=== PATIENT | female | born 1960 | race Caucasian/White ===

== ENCOUNTER → 2017-01-03 07:53 | Outpatient (CLI) | payer BC | LOC: D.MRI 01-02 15:00 | DX: M25.561 Pain in right knee (principal) ==

== ENCOUNTER 2017-01-09 09:30 | Day surgery (SDC) | payer BC ==
[2017-01-06 15:39] LABS: HEMATOCRIT 41.2 % (36.0-48.0); HEMOGLOBIN 13.6 g/dL (12-16); MCH 31.1 pg (26.0-34.0); MCV 94.1 fL (80.0-100.0); MEAN PLATELET VOLUME 9.7 fL (7.4-10.4); RBC 4.38 10x6/uL (4.00-5.40); RDW 12.3 % (11.5-14.5); WBC 5.6 10x3/uL (4.8-10.8)
[~2017-01-09] VITALS: Ht 170.2 cm; Wt 57.2 kg
[~2017-01-09 09:30] MED LIST: AMBIEN10 MG PO; SYNTHROID50 MCG PO; ZOCOR20 MG PO
[2017-01-09 14:00] VITALS: BP 113/68; Ht 170.2 cm; Wt 57.2 kg
[2017-01-09] MEDS ORDERED: HYDROCODONE-APA1 TAB PO (17:14)
--- NOTE | 2017-01-13 14:19 | OP ---
PATIENT NAME: TJ CABEZAS MEDICAL RECORD: [id number] :58 LOCATION:D.OPS ADMISSION DATE: SURGEON: LANA CARTWRIGHT MD DATE OF OPERATION: 01/09/2017 PREOPERATIVE DIAGNOSIS: Medial meniscus tear of the left knee. POSTOPERATIVE DIAGNOSIS: Medial meniscus tear of the left knee. PROCEDURE: Arthroscopic partial medial meniscectomy of the left knee. SURGEON: Lana Cartwright MD. ANESTHESIA: General. INTRAOPERATIVE COMPLICATIONS: None. SUMMARY OF PATHOLOGIC FINDINGS: The patient had a complex tear of the posterior horn of the medial meniscus consistent with preoperative MRI. OPERATIVE SUMMARY IN DETAIL: After obtaining the appropriate preoperative orthopedic surgery consent as well as anesthetic consultation, evaluation and clearance, the patient was brought to the operating room and placed on the operating table in supine position. After general laryngeal mask was administered, tourniquet was placed about the proximal aspect of left lower extremity. Left lower extremity was then prepped and draped in routine sterile fashion. The leg was elevated and exsanguinated, tourniquet inflated to 350 mmHg. Routine inferolateral portal was established followed by superomedial portal and inferomedial portal. Diagnostic arthroscopy did reveal the patient to have a complex tear of the posterior horn of the medial meniscus. Arthroscopic resector was utilized to debride the medial meniscus back to stable meniscal elements. Having completed this, the knee was insufflated with 30 cc of 0.25% Marcaine with epinephrine and 40 mg of Depo-Medrol. Arthroscopy portals were closed in routine interrupted fashion using 4-0 Prolene. Sterile dressings were applied. The tourniquet was deflated. The patient was awakened, taken to recovery room in stable condition. All final needle and sponge counts were correct. TRANSINT:[id number] Voice Confirmation ID: [id number] DOCUMENT ID: [id number] LANA CARTWRIGHT MD at 1419 CC: [id number] DICTATION DATE: 01/13/17916 TOBACCO SORTER: 01/13/17 1225 [facility] 01/09/17 [place] [address]
== END 2017-01-09 19:00 | disposition home or self-care (01) ==
LOC: D.OPS 09:30 → D.PAN 16:30 → D.OPS 16:30
PROVIDERS: Anesthesiology
DX: S83.242A Other tear of medial meniscus, current injury, left knee, initial encounter (principal); E03.9 Hypothyroidism, unspecified; Z01.812 Encounter for preprocedural laboratory examination

== ENCOUNTER 2017-02-22 15:59 | Outpatient (CLI) | payer BC ==
[2017-01-09 14:00] VITALS: BMI 19.7
[~2017-02-22 15:59] MED LIST changes: +HYDROCODONE-APA1 TAB PO
== END 2017-02-22 16:34 ==
LOC: D.MAMMO 15:59
DX: Z12.31 Encounter for screening mammogram for malignant neoplasm of breast (principal)

== ENCOUNTER → 2017-04-10 11:15 | Outpatient (CLI) | payer BC ==
[2017-01-09 14:00] VITALS: BMI 19.7
== END | disposition home or self-care (01) ==
LOC: D.US 11:15
DX: R10.9 Unspecified abdominal pain (principal)

== ENCOUNTER → 2017-04-25 07:50 | Outpatient (CLI) | payer BC ==
[2017-01-09 14:00] VITALS: BMI 19.7
== END | disposition home or self-care (01) ==
LOC: D.NM 07:50
DX: R10.11 Right upper quadrant pain (principal)

== ENCOUNTER → 2017-05-03 12:50 | Outpatient (CLI) | payer BC ==
[2017-01-09 14:00] VITALS: BMI 19.7
== END | disposition home or self-care (01) ==
LOC: D.CT 12:50
DX: R16.0 Hepatomegaly, not elsewhere classified (principal)

== ENCOUNTER → 2017-05-23 05:49 | Day surgery (SDC) | payer BC ==
[2017-05-22 13:55] LABS: BASOPHILS 0.4 % (0-2); EOSINOPHILS 4.3 % (0-7); HEMATOCRIT 40.2 % (36.0-48.0); HEMOGLOBIN 13.4 g/dL (12-16); MCH 31.5 pg (26.0-34.0); MCHC 33.3 g/dL (31.0-37.0); MCV 94.6 fL (80.0-100.0); MEAN PLATELET VOLUME 9.6 fL (7.4-10.4); MONOCYTES 11.3 % (2-11); PLATELET COUNT 221 10x3/uL (130-400); RBC 4.25 10x6/uL (4.00-5.40); RDW 12.3 % (11.5-14.5); WBC 5.1 10x3/uL (4.8-10.8)
[2017-05-22 14:21] LABS: CALC OSMOLALITY 280 mosm/kg (275-300); CALCIUM 9.3 mg/dL (8.5-10.1); CARBON DIOXIDE 32.3 mmol/L (21.0-32.0); CHLORIDE - SERUM 105 mmol/L (98-107); CREATININE - SERUM 0.8 mg/dL (0.6-1.3); GLUCOSE 90 mg/dL (74-106); POTASSIUM - SERUM 4.7 mmol/L (3.5-5.1); SODIUM 141 mmol/L (136-145); UREA NITROGEN 12 mg/dL (7-18); eGFR NON AFRICAN AMERICAN 78 mL/min (90-120)
[~2017-05-23] VITALS: Ht 170.2 cm; Wt 58.1 kg
--- NOTE | ~2017-05-23 | OP ---
PATIENT NAME: TJ CABEZAS MEDICAL RECORD: [id number] :58 LOCATION:D.OPS ADMISSION DATE: SURGEON: MIGUEL ÁNGEL PATEL MD DATE OF OPERATION: 05/23/2017 PREOPERATIVE DIAGNOSES: 1. Biliary dyskinesia. 2. Hyperlipidemia. POSTOPERATIVE DIAGNOSES: 1. Biliary dyskinesia. 2. Hyperlipidemia. PROCEDURE: Laparoscopic cholecystectomy. SURGEON: Miguel Ángel Patel MD REPORT OF PROCEDURE: The patient's abdomen was prepped and draped in sterile fashion. A cutdown was made on the inferior aspect of the umbilicus. Vicryls #0 were placed on the fascia bilaterally and the fascia was incised with #15 blade. I then bluntly entered the peritoneal cavity and placed a 12-mm Trent port. Under direct visualization, a 5-mm trocar was placed in the epigastrium and two more 5-mm trocars were placed in the right subcostal region. The gallbladder was grasped and elevated. The cystic artery and duct were dissected free. These were clipped proximally and distally and ligated in standard fashion. The artery was actually bifurcated and both branches were clipped and ligated. The gallbladder was then taken off the liver bed using electrocautery. We irrigated out the right upper quadrant and assured there was no sign of any bleeding from the liver bed. At this point, the ports and insufflation were then removed and the gallbladder was taken out through the umbilicus. The umbilical fascia was closed with interrupted #0 Vicryls times 3. The wounds were irrigated out with normal saline and infused with 10 mL of 0.25% Marcaine with epinephrine. The skin incisions were all closed with subcutaneous 5-0 Monocryl and dressed appropriately. COMPLICATIONS: None. CONDITION: Stable. ANESTHESIA: General endotracheal and local. BLOOD LOSS: Minimal. TRANSINT:[id number] Voice Confirmation ID: [id number] DOCUMENT ID: [id number] MIGUEL ÁNGEL PATEL MD CC: LUPE MCCORMICK MD [id number] DICTATION DATE: 05/23/17 1040 SURGERY MANAGER: 05/23/17 1209 [facility] [address] [id number]
[~2017-05-23 05:49] MED LIST changes: +BIOTIN5 MG PO; +GARLIC PO; +MOBIC7.5 MG PO; +MULTIPLE VITAMI1 TA1 PO; +VITAMIN B-121000 MCG PO; +VITAMIN C1000 MG PO
[2017-05-23 07:15] VITALS: BP 131/68; Ht 170.2 cm; Wt 58.1 kg
== END | disposition home or self-care (01) ==
LOC: D.OPS 05:49 → D.PAN 08:15
PROVIDERS: Surgery
DX: K82.8 Other specified diseases of gallbladder (principal); E03.9 Hypothyroidism, unspecified; E78.5 Hyperlipidemia, unspecified; Z01.812 Encounter for preprocedural laboratory examination

== ENCOUNTER 2017-07-08 11:07 | Observation (INO) | payer BC ==
[~2017-07-08] VITALS: Ht 170.2 cm; Wt 56.8 kg
--- NOTE | 2017-07-08 03:00 | NUR ---
PT LYING IN BED AWAKE, WATCHING TV. DENIES NEEDS AT THIS TIME. CONTINUE MEDICAL ASSISTANT DERMATOLOGY'S PLAN OF CARE.
--- NOTE | 2017-07-08 14:00 | NUR ---
RECEIVED TO ROOM 2217 VIA STRETCHER FROM ER. A/O X3. NO C/O AT THIS TIME. SKIN IS INTACT WITHOUT REDNESS EXCEPT ABRASION TO RIGHT SIDE OF FACE AND SMALL ABRASION TO RIGHT HIP. SL TO LEFT AC IS PATENT WITHOUT REDNESS AT INSERTION SITE. DENIES NEEDS.
[2017-07-08 14:05] VITALS: BP 145/78; Ht 170.2 cm; Wt 56.8 kg
--- NOTE | 2017-07-08 14:30 | NUR ---
UP IN ROOM WITH PT. VERY PAINFUL WITH ACTIVITY. WILL MONITOR.
--- NOTE | 2017-07-08 15:30 | NUR ---
REQUESTED AND GIVEN ONE HYDROCODONE PO FOR C/O RIGHT PELVIC PAIN LEVEL 6. WILL MONITOR. FAMILY IN ROOM. DENIES OTHER NEEDS.
[2017-07-08 15:44] VITALS: BP 145/78
--- NOTE | 2017-07-08 16:54 | NUR ---
UP TO [facility] WITH ONE PERSON ASSIST. VOIDED 250 CC CLEAR YELLOW URINE WITHOUT DIFFICULTY. SITTING UP ON SIDE OF BED AT THIS TIME.
--- NOTE | 2017-07-08 17:20 | NUR ---
C/O NAUSEA, NO EMESIS. GIVEN 4 MG ZOFRAN SLOW IVP FOR SAME. WILL MONITOR. HEART RATE REGULAR AT 77. SKIN SLIGHTLY CLAMY. COOL CLOTH PLACED ON FOREHEAD. WILL MONITOR.
--- NOTE | 2017-07-08 17:30 | NUR ---
OFF UNIT VIA BED FOR CT. DR. ALDRIDGE NOTIFIED OF LOSS OF CONSCIOUSNESS WITH FALL. CT OF HEAD ORDERED.
--- NOTE | 2017-07-08 18:44 | NUR ---
RETURNED FROM CT. NO CHANGES NOTED. DENIES NEEDS.
[2017-07-08 20:00] VITALS: BP 124/70
--- NOTE | 2017-07-08 21:27 | NUR ---
PATIENT RESTING COMFORTABLY, STATED THAT SHE WILL ASK FOR HER AMBIEN IF SHE NEEDS IT. HELPED PATIENT UP TO BEDSIDE CAMODE. STATED THE IT IS HER RIGHT HIP THAT HURTS THE MOST WITH MOVEMENT. NO OTHER NEEDS NOTED AT THIS TIME.
[2017-07-09] VITALS (7 sets, daily range): BP systolic 114–130; BP diastolic 53–70
[2017-07-09 05:26] LABS: BASOPHILS 0.1 % (0-2); EOSINOPHILS 0.8 % (0-7); HEMATOCRIT 36.3 % (36.0-48.0); IMMATURE GRANULOCYTES 0.1 % (0-5); LYMPHOCYTES 26.4 % (15-50); MCHC 33.1 g/dL (31.0-37.0); MCV 93.8 fL (80.0-100.0); MEAN PLATELET VOLUME 9.4 fL (7.4-10.4); MONOCYTES 9.9 % (2-11); NEUTROPHILS 62.7 % (40-80); RBC 3.87 10x6/uL (4.00-5.40); RDW 12.9 % (11.5-14.5); WBC 7.6 10x3/uL (4.8-10.8)
[2017-07-09 05:31] LABS: PLATELET COUNT 174 10x3/uL (130-400)
[2017-07-09 06:00] LABS: CALC OSMOLALITY 286 mosm/kg (275-300); CALCIUM 8.1 mg/dL (8.5-10.1); CARBON DIOXIDE 28.3 mmol/L (21.0-32.0); CHLORIDE - SERUM 109 mmol/L (98-107); CREATININE - SERUM 0.6 mg/dL (0.6-1.3); GLUCOSE 100 mg/dL (74-106); POTASSIUM - SERUM 3.7 mmol/L (3.5-5.1); SODIUM 144 mmol/L (136-145); UREA NITROGEN 13 mg/dL (7-18); eGFR NON AFRICAN AMERICAN > 90 mL/min (90-120)
--- NOTE | 2017-07-09 08:00 | NUR ---
ASSESSMENT PER FLOW SHEET.PT WITHOUT DISTRESS.COMPLAINS OF PAIN UPON MOVEMENT.ICE PACKS ORDERED.MONITOR FOR NEEDS
--- NOTE | 2017-07-09 09:00 | NUR ---
MEDS ORDERED FOR PAIN,SEE MAR. ICE PACKS PROVIDED
--- NOTE | 2017-07-09 10:30 | NUR ---
ASSIST UP TO BSC. GAIT STEADY WITH ASSIST.PAIN BETTER.MONITOR
--- NOTE | 2017-07-09 12:27 | NUR ---
DENIES NEEDS, JUST STARTED TO NAP.
--- NOTE | 2017-07-09 17:42 | NUR ---
UP AT BEDSIDE EATING DINNER.REMAINS WITHOUT CHANGE FROM INITIAL SHIFT ASSESSMENT.CONT PLAN OF CARE
--- NOTE | 2017-07-09 19:55 | NUR ---
PATIENT RESTING IN BED WITH NO VISIBLE SIGNS OF DISTRESS. I ASSISTED THE PATIENT UP TO THE BSC AND BACK TO BED. PATIENT DENIES OTHER NEEDS AT THIS TIME. BED IN LOWEST POSITION AND CALL LIGHT WITHIN REACH. ENCOURAGED THE PATIENT TO CALL IF SHE HAS NEEDS.
--- NOTE | 2017-07-09 20:04 | NUR ---
LATE ENTRY 1130 MET WITH PATIENT AND HER AT THE BEDSIDE. HER PLAN IS TO DISCHARGE TO HOME. SHE WILL NEED A WALKER WITH PLATFORM AND HAS NEED OF A HOSPITAL BED. THERE ARE 4 STEPS TO ENTER HER HOME. THERE ARE 11 STEPS TO THE LEVEL FOR HER BEDROOM. NO BEDROOMS ON THE GROUND LEVEL. PELVIC FX'S AT THREE SITES. PAIN MANAGEMENT IS ISSUE THIS AM. PHYSICAL THERAPY HAS VISITED TO EVAL AND START THERAPY. DISCUSSED PROVIDERS FOR DME. [facility]. SHE BELIEVES THEY ASSISTED HER PREVIOUSLY. TC TO [facility]. SPOKE WITH [facility]. FAXED ORDERS. THEY WILL CHECK INSURANCE IN THE AM. CM REQUEST [facility] TO SPEAK WITH PATIENT'S TO NEGOTIATE DELIVERY OF DME. CM TO FOLLOW TO ASSIST WITH DISCHARGE PLANNING. PHARMACY- [facility] ON [address]. CM TO FOLLOW TO ASSIST W/ DISCHARGE PLANNING.
[2017-07-10 04:00] VITALS: BP 111/69
[2017-07-10 05:47] LABS: BASOPHILS 0.2 % (0-2); EOSINOPHILS 4.3 % (0-7); HEMATOCRIT 34.4 % (36.0-48.0); HEMOGLOBIN 11.4 g/dL (12-16); IMMATURE GRANULOCYTES 0.2 % (0-5); LYMPHOCYTES 31.6 % (15-50); MCH 31.4 pg (26.0-34.0); MCHC 33.1 g/dL (31.0-37.0); MCV 94.8 fL (80.0-100.0); MEAN PLATELET VOLUME 9.7 fL (7.4-10.4); MONOCYTES 9.6 % (2-11); NEUTROPHILS 54.1 % (40-80); PLATELET COUNT 173 10x3/uL (130-400); RBC 3.63 10x6/uL (4.00-5.40); RDW 12.7 % (11.5-14.5)
[2017-07-10 05:49] LABS: WBC 5.4 10x3/uL (4.8-10.8)
[2017-07-10 06:06] LABS: CALC OSMOLALITY 283 mosm/kg (275-300); CALCIUM 8.4 mg/dL (8.5-10.1); CARBON DIOXIDE 24.5 mmol/L (21.0-32.0); CHLORIDE - SERUM 110 mmol/L (98-107); GLUCOSE 100 mg/dL (74-106); POTASSIUM - SERUM 3.7 mmol/L (3.5-5.1); SODIUM 143 mmol/L (136-145); UREA NITROGEN 10 mg/dL (7-18)
[2017-07-10 06:11] LABS: CREATININE - SERUM 0.4 mg/dL (0.6-1.3); eGFR NON AFRICAN AMERICAN > 90 mL/min (90-120)
[2017-07-10] MEDS ORDERED: OXYCODONE HCL5 MG PO (07:51)
[2017-07-10] MEDS ORDERED: MIRALAX17 GM PO (07:52)
--- NOTE | 2017-07-10 07:54 | NUR ---
AWAKE AND ALERT. ORIENTED X3. NO C/O THIS AM. LUNGS ARE CLEAR BILATERLLY, NO COUGH NOTED. SKIN IS INTACT WITHOUT REDNESS. SPLINT IN PLACE TO RIGHT WRIST. IV TO LEFT FOREARM IS PATNET WITHOUT REDNESS AT ISNERTION SITE. DENIES NEEDS.
[2017-07-10 08:14] VITALS: BP 130/71; BP 132/80
--- NOTE | 2017-07-10 10:15 | NUR ---
UP TO SHOWER WITH ONE PERSON ASSIST. NO C/O AT THIS TIME. DENIES NEEDS.
[2017-07-10 11:51] VITALS: BP 120/72
--- NOTE | 2017-07-10 11:51 | NUR ---
0945 PLAN FOR DISCHARGE TO HOME TODAY . RECEIVED DISCHARGE ORDERS. TC TO [facility]. SPOKE WITH [facility]. ADVISED PATIENT WOULD BE DISCHARGED TO HOME TODAY. THEY ARE CHECKING INSURANCE AND HAVE THE ORDERS. [facility] ARE TO ARRANGE THE DELIVERY OF THE BED WITH PATIENT'S . SPOKE WITH THE PATIENT REGARDING HOME HEALTH. [facility] IS IN NETWORK WITH [facility]. PATIENT CHOICE FORM OBTAINED TC TO [facility]. SPOKE WITH [employer] PROJECT MANA[employer]. FAXED REFERRAL. CM FOLLOWING TO FACILITATE DISCHARGE.
--- NOTE | 2017-07-10 12:15 | NUR ---
REQUESTED AND GIVEN 10MG OXY IR PO FOR C/O PELVIC PAIN LEVEL 5. WILL MONITOR.
--- NOTE | 2017-07-10 13:24 | NUR ---
ATE MOST OF LUNCH. DENIES NEEDS. REPORTS GOOD PAIN RELIEF WITH USE OF OXY IR. WILL CONTINUE TO MONITOR.
--- NOTE | 2017-07-10 15:42 | NUR ---
DISCHARGED TO HOME AMBULATORY WITH FAMILY. DISCHARGE INSTRUCTIONS GIVEN BOTH VERBALLY AND WRITTEN. ALL QUESTIONS ANSWERED. PATIENT VERBALIZED UNDERSTANDING OF SAME. NEEDED PRESCRIPTIONS GIVEN TO PATIENT. GIVEN 30MG TORADOL IV AND ONE HYDROCODONE PO FOR PAIN MANAGEMENT LEVEL 5 AND TRIP HOME. SL TO LEFT WRIST D/C WITH CATHETER INTACT.
== END 2017-07-10 15:44 | disposition home health service (06) ==
LOC: D.ER 11:07 → D.MS 13:30 → OBSVTIME 13:30 → D.MS 13:30
PROVIDERS: Family Medicine; ADMIT Family Medicine
DX: S32.591A Other specified fracture of right pubis, initial encounter for closed fracture (principal); W14.XXXA Fall from tree, initial encounter; S60.211A Contusion of right wrist, initial encounter; S70.01XA Contusion of right hip, initial encounter; S40.011A Contusion of right shoulder, initial encounter; E03.9 Hypothyroidism, unspecified

== ENCOUNTER → 2018-04-04 12:14 | Outpatient (CLI) | payer BC ==
[2017-07-08 14:05] VITALS: BMI 19.6
[~2018-04-04 12:14] MED LIST changes: +MIRALAX17 GM PO; +OXYCODONE HCL5 MG PO
== END | disposition home or self-care (01) ==
LOC: D.CT 12:14
DX: M25.531 Pain in right wrist (principal); S83.221A Peripheral tear of medial meniscus, current injury, right knee, initial encounter; X58.XXXA Exposure to other specified factors, initial encounter

== ENCOUNTER → 2018-06-27 18:01 | Outpatient (CLI) | payer BC ==
[2017-07-08 14:05] VITALS: BMI 19.6
[~2018-06-27 18:01] MED LIST changes: +IBUPROFEN800 MG PO; +TORADOL10 MG PO; +ULTRAM50 MG PO
== END | disposition home or self-care (01) ==
LOC: D.MAMMO 10:00
DX: Z12.31 Encounter for screening mammogram for malignant neoplasm of breast (principal)

== ENCOUNTER 2018-06-29 05:30 | Day surgery (SDC) | payer BC ==
[2018-06-27 10:40] LABS: HEMOGLOBIN 13.7 g/dL (12-16); MCH 31.6 pg (26.0-34.0); MCHC 33.4 g/dL (31.0-37.0); MCV 94.7 fL (80.0-100.0); MEAN PLATELET VOLUME 9.5 fL (7.4-10.4); RBC 4.33 10x6/uL (4.00-5.40); RDW 12.7 % (11.5-14.5); WBC 7.2 10x3/uL (4.8-10.8)
[~2018-06-29] VITALS: Ht 170.2 cm; Wt 56.7 kg
--- NOTE | ~2018-06-29 | OP ---
PATIENT NAME: TJ CABEZAS MEDICAL RECORD: [id number] :58 LOCATION:[facility] ADMISSION DATE: SURGEON: JERO MATT DO DATE OF OPERATION: 06/29/2018 PROCEDURE PERFORMED: Right knee arthroscopy with partial medial and partial lateral meniscectomies. PREOPERATIVE DIAGNOSIS: Right knee medial meniscal tear. POSTOPERATIVE DIAGNOSES: Right knee medial meniscal tear, but lateral meniscal tear as well. INDICATIONS: Ms. Cabezas is a 58-year-old female who has had right knee pain for quite some time. She had some catching and popping and pain with twisting in her knee. She was tired with dealing the pain, had an MRI that showed the tear. She wanted to have surgery when she could and she was consented for the procedure. She was aware of the risks and benefits of the procedure including infection, bleeding, need for further surgery, damage to cartilage, nerves and vessels and she consented to it. SURGEON: Jero Matt DO DESCRIPTION OF PROCEDURE: The patient was taken to the operative suite, laid in supine position, given general anesthetic, given 1 gram Ancef preoperatively. The right lower extremity was prepped and draped in sterile fashion. A timeout was performed, everyone was in agreement with the correct side, site, patient and procedure. The right knee was then flexed down and the lateral portal was established with 11-blade scalpel. The trocar was then entered into the knee and the camera was entered into the knee. The suprapatellar pouch was inspected and the loose bodies were seen and that the lateral gutter was inspected. No loose body seen there and the medial gutter was inspected. No loose bodies there either. The knee was then brought from extension into flexion and the medial compartment was entered. The medial portal was established with the 18-gauge spinal needle and the 11-blade scalpel. A probe was then entered into the knee. The medial meniscus and the posterior horn was probed and indeed a tear was seen in the posterior horn of the medial meniscus, that was quite frayed. This was chewed back with a straight biter and then a shaver. Once this was chewed back and shaved back to a stable position, it was probed again and no additional tears were seen. The ACL was then probed and seen to be taut and in good position. The probe was then parked in the posterolateral area and the knee was [id number]. The lateral compartment was entered. A small tear on the inner aspect of the middle to anterior third of the lateral meniscus was seen and this was chewed out with a shaver. Once this was achieved back to stable point, the meniscus was probed. No other tears were seen. The patella was then inspected and no chondromalacia was seen on the patella. The femoral condyles in the tibial plateau was also inspected and no chondromalacia was seen on them. The water was turned off then and suction was turned on and excess fluid was removed from the knee. I then injected approximately 3 mL of 0.25% Marcaine with epinephrine around the portal sites and the portal sites were closed with 4-0 Monocryl in inverted interrupted fashion. Steri-Strips were placed on them. Adaptic, 4 x 4s, ABD, Webril, Juliocesar wrap and then GREG stockings placed on the knee. The patient was awakened and taken to recovery in stable condition. OPERATIVE REPORT [id number] TJ CABEZAS BLOOD LOSS: Minimal. COMPLICATIONS: None. TRANSINT:[id number] Voice Confirmation ID: [id number] DOCUMENT ID: [id number] JERO MATT DO at 1034 CC: [id number] DICTATION DATE: 06/29/18814 FOCUSED FACTORY MANAGER: 06/29/18 0926 [facility] 06/29/18 [facility] [address] [place] [address]
[2018-06-29 05:59] VITALS: BP 120/84; Ht 170.2 cm; Wt 56.7 kg
== END 2018-06-29 09:46 | disposition home or self-care (01) ==
LOC: D.OPS 05:30 → D.PAN 07:30 → D.OPS 09:46
PROVIDERS: Anesthesiology
DX: S83.281A Other tear of lateral meniscus, current injury, right knee, initial encounter (principal); S83.241A Other tear of medial meniscus, current injury, right knee, initial encounter; Z01.812 Encounter for preprocedural laboratory examination

== ENCOUNTER → 2018-10-09 06:56 | Outpatient (CLI) | payer BC ==
[2018-06-29 05:59] VITALS: BMI 19.6
== END | disposition home or self-care (01) ==
LOC: D.MRI 06:56
DX: M54.16 Radiculopathy, lumbar region (principal)

== ENCOUNTER → 2019-06-28 09:00 | Outpatient (CLI) | payer BC ==
[2018-06-29 05:59] VITALS: BMI 19.6
== END | disposition home or self-care (01) ==
LOC: D.MAMMO 09:00
PROVIDERS: ATTEND Family Medicine
DX: Z12.31 Encounter for screening mammogram for malignant neoplasm of breast (principal)

== ENCOUNTER → 2019-11-05 12:24 | Outpatient (CLI) | payer BC ==
[2018-06-29 05:59] VITALS: BMI 19.6
== END | disposition home or self-care (01) ==
LOC: D.US 12:24
PROVIDERS: ATTEND Orthopaedic Surgery
DX: R60.0 Localized edema (principal)

== ENCOUNTER → 2019-11-11 12:23 | Outpatient (CLI) | payer BC ==
[2018-06-29 05:59] VITALS: BMI 19.6
== END | disposition home or self-care (01) ==
LOC: D.MRI 12:23
PROVIDERS: ATTEND Orthopaedic Surgery
DX: M54.16 Radiculopathy, lumbar region (principal)